=== PATIENT | female | born 1965 | race Caucasian/White ===

== ENCOUNTER 2019-06-03 14:14 | Emergency (ER) | payer MEDICAID ==
[~2019-06-03] VITALS: Ht 167.6 cm; Wt 109.7 kg
[~2019-06-03 14:14] MED LIST: GUAN2TAB PO; TRAZ-91 PO; ZOF4T PO
[2019-06-03 15:10] LABS: BASOPHILS # (AUTO) 0.1 X10'3 (0-0.2); EOSINOPHILS # (AUTO) 0.3 X10'3 (0-0.9); EOSINOPHILS % (AUTO) 3.4 % (0-6); HEMATOCRIT 43.7 % (35.0-45.0); HEMOGLOBIN 14.6 g/dl (12.0-16.0); LYMPHOCYTES # (AUTO) 3.7 X10'3 (1.1-4.8); LYMPHOCYTES % (AUTO) 48.5 % (21-51); MEAN CORPUSCULAR HEMOGLOBIN 28.4 PG (27.0-31.0); MEAN CORPUSCULAR HGB CONC 33.3 g/dL (33.0-36.5); MEAN CORPUSCULAR VOLUME 85.1 FL (78-98); MEAN PLATELET VOLUME 8.5 FL (7.4-10.4); MONOCYTES # (AUTO) 0.7 X10'3 (0-0.9); MONOCYTES % (AUTO) 8.6 % (2-12); NEUTROPHILS # (AUTO) 2.9 X10'3 (1.8-7.7); NEUTROPHILS % (AUTO) 38.5 % (42-75); PLATELET COUNT 298 X10'3 (140-440); RED BLOOD COUNT 5.14 X10'6 (4.20-5.60); RED CELL DISTRIBUTION WIDTH 13.7 % (11.5-14.5); WHITE BLOOD COUNT 7.6 X10'3 (4.5-11.0)
[2019-06-03] MEDS ORDERED: ondansetron/PF 4mg/2ml inj IV ONE (15:15)
[2019-06-03] MEDS ORDERED: normal saline 1000ML IV soln IVB ONE (15:15)
[2019-06-03 15:30] LABS: ALANINE AMINOTRANSFERASE 54 U/L (12-78); ALKALINE PHOSPHATASE 106 IU/L (46-116); ANION GAP 10 (8-16); ASPARTATE AMINO TRANSFERASE 25 U/L (10-37); BILIRUBIN,TOTAL 0.2 MG/DL (0.1-1.0); BLOOD UREA NITROGEN 14 MG/DL (7-18); BUN/CREATININE RATIO 16.3 (6.6-38.0); CALCIUM 9.1 MG/DL (8.5-10.1); CHLORIDE 104 MMOL/L (99-107); CREATININE 0.86 MG/DL (0.40-0.90); GLUCOSE 125 MG/DL (70-104); LIPASE 153 U/L (73-393); POTASSIUM 3.9 MMOL/L (3.5-5.1); SODIUM 140 MMOL/L (135-145); TOTAL CARBON DIOXIDE 25.9 MMOL/L (24-32); TOTAL PROTEIN 7.9 G/DL (6.4-8.2); eGFR 70 ML/MIN
[2019-06-03 15:35] LABS: PARTIAL THROMBOPLASTIN TIME 28 SECONDS (22-32)
[2019-06-03 15:48] LABS: CLARITY,URINE CLEAR (Clear); COLOR,URINE YELLOW (Yellow); GLUCOSE, URINE NEGATIVE (Neg); KETONES,URINE NEGATIVE (Neg); LEUKOCYTE ESTERASE ,URINE NEGATIVE (Neg); NITRITES, URINE NEGATIVE (Neg); OCCULT BLOOD,URINE NEGATIVE (Neg); PH,URINE 5.5 (4.8-8.0); PROTEIN,URINE NEGATIVE (Neg); UROBILINOGEN,URINE 0.2 E.U/dL (0.2-1.0)
[2019-06-03 15:50] LABS: UA COLLECTION TYPE CLN CATCH MIDSTREAM
[2019-06-03] MEDS ORDERED: ONDA4TAB6 PO (15:58)
[2019-06-03 16:20] VITALS: BP 137/87
== END 2019-06-03 16:21 | disposition home or self-care (01) ==
LOC: ER 14:14
DX: R10.30 Lower abdominal pain, unspecified (principal); R19.7 Diarrhea, unspecified; R11.0 Nausea; G43.909 Migraine, unspecified, not intractable, without status migrainosus; I10 Essential (primary) hypertension; Z90.49 Acquired absence of other specified parts of digestive tract; Z56.0 Unemployment, unspecified; Z88.2 Allergy status to sulfonamides; Z79.899 Other long term (current) drug therapy
CPT/HCPCS: 36415; 71045; 80053; 81003; 83690; 84484; 85025; 85610; 85730; 93005; 96374; 99284; J2405; J7030

== ENCOUNTER 2019-09-13 14:55 | Emergency (ER) | payer MEDICAID ==
[~2019-09-13] VITALS: Ht 167.6 cm; Wt 105.0 kg
[~2019-09-13 14:55] MED LIST changes: +ONDA4TAB6 PO
[2019-09-13 15:05] VITALS: BP 115/95
[2019-09-13] MEDS ORDERED: guaiFENesin/DM 10ml UD oral syrup PO ONE (17:00)
[2019-09-13] MEDS ORDERED: ibuprofen tablet 400 MG TABLET PO ONE (17:00)
[2019-09-13] MEDS ORDERED: ROBDML PO (17:04)
[2019-09-13] MEDS ORDERED: ALBU8HFA PO (17:04)
[2019-09-13] MEDS ORDERED: BENZ-16 PO (17:04)
== END 2019-09-13 17:29 | disposition home or self-care (01) ==
LOC: ER 14:56
DX: J06.9 Acute upper respiratory infection, unspecified (principal); R11.2 Nausea with vomiting, unspecified; R42 Dizziness and giddiness; I10 Essential (primary) hypertension; F32.9 Major depressive disorder, single episode, unspecified; Z90.49 Acquired absence of other specified parts of digestive tract; Z56.0 Unemployment, unspecified; Z88.2 Allergy status to sulfonamides; Z79.899 Other long term (current) drug therapy
CPT/HCPCS: 99283